=== PATIENT | male | born 1985 | race Caucasian/White ===

== ENCOUNTER 2017-04-20 15:43 | Emergency (ER) | payer MEDICAID ==
[~2017-04-20] VITALS: Ht 170.2 cm; Wt 63.5 kg
--- NOTE | 2017-04-20 15:47 | NUR ---
Placed in room 3 . Placed on monitor worker, blood pressure machine and pulse oximeter. To gown for exam. Side rails up. Assumed care of patient.
[2017-04-20 15:50] VITALS: BP_SYST 105
--- NOTE | 2017-04-20 15:50 | NUR ---
C/O chest pressure for 2 hours, reports cardiac stents and heart valve problem.
--- NOTE | 2017-04-20 15:57 | NUR ---
ER Dr. Espinal at bedside examining patient. During Dr. Espinal's exam the patients description of onset of symptoms changed. The patient now reported the pain the pain started 2 days ago.
[2017-04-20 16:18] LABS: BASOPHILS # (AUTO) 0.1 K/uL (0.0-0.2); BASOPHILS % (AUTO) 0.7 % (0.0-2.0); EOSINOPHILS # (AUTO) 0.2 K/uL (0.0-0.4); HEMATOCRIT 42.9 % (36-54); HEMOGLOBIN 13.9 g/dL (14.0-18.0); LYMPHOCYTES # (AUTO) 1.8 K/uL (1.0-5.5); LYMPHOCYTES % (AUTO) 23.7 % (20.5-51.5); MEAN CORPUSCULAR HEMOGLOBIN 27 pg (27-31); MEAN CORPUSCULAR HGB CONC 32 % (32-36); MEAN CORPUSCULAR VOLUME 84 fL (79.0-98.0); MONOCYTES # (AUTO) 0.6 K/uL (0.0-1.0); MONOCYTES % (AUTO) 7.7 % (1.7-9.3); NEUTROPHILS # (AUTO) 4.9 K/uL (1.8-7.7); NEUTROPHILS % (AUTO) 65.9 % (40.0-70.0); PLATELET COUNT (AUTO) 473 K/uL (130-430); RED BLOOD CELL COUNT(AUTO) 5.11 MIL/uL (4.2-6.2); RED CELL DISTRIBUTION WIDTH 14.6 % (9.0-15.0); WHITE BLOOD COUNT (AUTO) 7.6 K/uL (4.8-10.8)
[2017-04-20 16:42] LABS: CALCIUM 9.3 mg/dL (8.4-11.0); CREATININE 0.76 mg/dL (0.55-1.30); POTASSIUM 3.6 mmol/L (3.5-5.1)
[2017-04-20 16:47] LABS: ALBUMIN 3.6 g/dL (3.4-4.8); TOTAL BILIRUBIN 0.4 mg/dL (0.0-1.0); TOTAL PROTEIN, SERUM 8.2 g/dL (6.4-8.3)
--- NOTE | 2017-04-20 17:15 | NUR ---
Patient given written and verbal discharge instructions and verbalizes understanding. ER MD Dr. Espinal discussed with patient the results and treatment provided. Patient in stable condition. ID arm band removed. No Rx given. Patient educated on pain management and to follow up with PMD. Pain Scale 0/10 Opportunity for questions provided and answered.
[2017-04-20 17:45] VITALS: BP_SYST 111
== END 2017-04-20 17:45 ==
LOC: SED 15:43
DX: R07.89 Other chest pain (principal); Z95.2 Presence of prosthetic heart valve
CPT/HCPCS: 36415; 80053; 83880; 84484; 85025; 85610-TC; 85730-TC; 93005; 99285

== ENCOUNTER 2020-05-26 14:00 | Emergency (ER) | payer MEDICAID ==
[~2020-05-26] VITALS: Ht 172.7 cm; Wt 81.6 kg
[2020-05-26 14:00] VITALS: BP_SYST 137
--- NOTE | 2020-05-26 14:00 | NUR ---
Triaged while still in ambulance, awaiting avail bed. ALS medics released, pt will remain with EMT's in ambulance with AC on.
--- NOTE | 2020-05-26 15:01 | NUR ---
Placed in room 6. Placed on streetsweeper operator, blood pressure machine and pulse oximeter. To gown for exam. Side rails up. Report given to BLAKE Carr.
[2020-05-26] MEDS ORDERED: OLANZapine IntraMuscular 10 MG VIAL (FOR I.M. INJECTION ONLY) IM ONE (15:15)
--- NOTE | 2020-05-26 16:15 | NUR ---
CT HEAD CXR COMPLETED, PT AGITATED, CONFUSED, REQUIRED MULTIPLE STAFF TO PLACE BACK IN BED
--- NOTE | 2020-05-26 16:56 | NUR ---
LABS DONE. PT CALM, CONFUSED BUT REDIRECTABLE
[2020-05-26 17:16] LABS: BASOPHILS % (AUTO) 0.5 % (0.0-2.0); EOSINOPHILS % (AUTO) 0.4 % (0.0-4.0); HEMATOCRIT 39.8 % (36-54); HEMOGLOBIN 12.6 g/dL (14.0-18.0); LYMPHOCYTES # (AUTO) 1.2 K/uL (1.0-5.5); LYMPHOCYTES % (AUTO) 11.7 % (20.5-51.5); MEAN CORPUSCULAR HEMOGLOBIN 25 pg (27-31); MEAN CORPUSCULAR HGB CONC 32 % (32-36); MEAN CORPUSCULAR VOLUME 79 fL (79.0-98.0); MONOCYTES # (AUTO) 0.6 K/uL (0.0-1.0); NEUTROPHILS # (AUTO) 8.3 K/uL (1.8-7.7); NEUTROPHILS % (AUTO) 81.4 % (40.0-70.0); PLATELET COUNT (AUTO) 475 K/uL (130-430); RED BLOOD CELL COUNT(AUTO) 5.04 MIL/uL (4.2-6.2); RED CELL DISTRIBUTION WIDTH 17.4 % (9.0-15.0); WHITE BLOOD COUNT (AUTO) 10.2 K/uL (4.8-10.8)
[2020-05-26 17:25] LABS: INR 1.1 (0.80-1.20); PROTHROMBIN TIME 10.6 SECS (9.5-12.5)
[2020-05-26 17:51] LABS: ANION GAP 14 (5-15); CALCIUM 9.7 mg/dL (8.4-11.0); CHLORIDE 102 mmol/L (98-107); GLUCOSE 89 mg/dL (70-99); POTASSIUM 3.2 mmol/L (3.5-5.1); SODIUM SERUM 137 mmol/L (136-145)
[2020-05-26 17:52] LABS: ALANINE AMINOTRANSFERASE 29 U/L (12-78); ALBUMIN 3.4 g/dL (3.4-4.8); ASPARTATE AMINOTRANSFERASE 16 U/L (10-37); CREATININE 0.95 mg/dL (0.55-1.30); GFR AFRICAN AMERICAN 117 mL/min (>90); TOTAL BILIRUBIN 0.3 mg/dL (0.0-1.0); UREA NITROGEN, BLOOD 8 mg/dL (8-21)
[2020-05-26 17:53] LABS: ALCOHOL, BLOOD < 3 mg/dL (<10)
[2020-05-26 18:10] LABS: ACETONE, SERUM NEGATIVE (NEGATIVE)
--- NOTE | 2020-05-26 18:26 | NUR ---
RESP UNLABORED, CONFUSED, RAPID EXT MOVEMENTS. UNABLE TO FOLLOW COMMANDS
[2020-05-26 18:39] LABS: BARBITURATE, URINE NEGATIVE (NEG <=200); BENZODIAZEPINE, URINE NEGATIVE (NEG <=150); CANNABINOID, URINE NEGATIVE (NEG <=50); COCAINE, URINE NEGATIVE (NEG <=150); METHAMPHETAMINES SCREEN,URINE NEGATIVE (NEG <=500); OPIATE, URINE NEGATIVE (NEG <=100); PHENCYCLIDINE SCREEN,URINE NEGATIVE (NEG <=25); UR TRICYCLIC ANTIDEPRESSANTS NEGATIVE (NEG <=300); URINE AMPHETAMINE POSITIVE (NEG <=500); URINE METHADONE NEGATIVE (NEG <=200); URINE OXYCODONE SCREEN NEGATIVE (NEG <=100); URINE PROPOXYPHENE SCREEN NEGATIVE (NEG <=300)
--- NOTE | 2020-05-26 19:30 | NUR ---
BURSTING OUT IN LAUGHTER
--- NOTE | 2020-05-26 19:58 | NUR ---
RESP UNLABORED, INCOMPREHENSIBLE SOUND, AAOX0. MOVING ALL EXT, SKIN WARM AND DRY. FOLLOWS COMMANDS. PREOCCUPIED WITH HIS THOUGHTS,
--- NOTE | 2020-05-26 20:15 | NUR ---
PT SITTING UP AAOX3, STATED HE IS NOT SUICIDAL AND HAS NOT SLEPT IN DAYS SPOKE WITH MD ABOUT DC
[2020-05-26 20:30] VITALS: BP_SYST 141
--- NOTE | 2020-05-26 20:30 | NUR ---
Patient given written and verbal discharge instructions ER MD discussed with patient the results and treatment provided. Patient in stable condition. IV catheter removed intact and dressing applied, no active bleeding.WRIST BAND REMOVED Patient educated on pain management and to follow up with PMD. Opportunity for questions provided and answered. Medication side effect fact sheet provided. TOLD TO STOP DRUG ABUSE. PT DECLINED HOSPITALIZATION OR SW REFERRAL OFF UNIT STEADY
== END 2020-05-26 20:30 | disposition home or self-care (01) ==
LOC: SED 14:00
DX: F19.10 Other psychoactive substance abuse, uncomplicated (principal); Z86.73 Personal history of transient ischemic attack (TIA), and cerebral infarction without residual deficits
CPT/HCPCS: 36415; 70450; 71045; 80053; 80307; 82009; 82140; 82550; 83605; 83880; 84484; 85025; 85610; 85730; 96372; 99285; G0482; J3490